=== PATIENT | female | born 1975 | race Two or more races ===

== ENCOUNTER 2016-08-12 16:16 | Emergency (ER) | payer SELFPAY ==
[2016-08-12 17:09] VITALS: BP 103/66
--- NOTE | 2016-08-12 17:27 | UC ---
Skin Complaint HPI - HPI Summary HPI Summary: PT WORKS AT [employer]. HAD A PPD PLACED 4 DAYS AGO 08/08/16. POSITIVE REACTION WITH SIGNIFICANT INDURATION AND TENDERNESS. WAS SENT HERE FOR FURTHER EVAL. OF NOTE PT REPORTS HAVING A POSITIVE PPD LAST YEAR AND A NEGATIVE CXR. NO MEDS. DENIES WEIGHT LOSS, SOB, FEVER, SWEATS, EASY BRUISING, HEMOPTYSIS OR MALAISE. 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 Hx Last Menstrual Period: July 30, 2016 Onset/Duration: Sudden Onset, Lasting Days, Still Present Skin Exposure Onset/Duration: Days Ago Timing: Constant Onset Severity: Moderate Current Severity: Moderate Pain Intensity: 4 Pain Scale Used: 0-10 Numeric Location: Discrete - RIGHT FOREARM Character: Swelling, Pain, Redness, Raised Aggravating: Touch Alleviating: Nothing Associated Signs & Symptoms: Positive: Tenderness - Allergy/Home Medications Allergies/Adverse Reactions: Allergies Allergy/AdvReac Type Severity Reaction Status Date / Time No Known Allergies Allergy Verified 08/12/16 17:09 Review of Systems Constitutional: Negative Skin: Other - POSITIVE PPD REACTION Respiratory: Negative Cardiovascular: Negative Gastrointestinal: Negative All Other Systems Reviewed And Are Negative: Yes PMH/Surg Hx/FS Hx/Imm Hx Previously Healthy: Yes - Surgical History Surgical History: Yes Surgery Procedure, Year, and Place: REPAIR OF PERFORATED LT EAR DRUM 2003 - Family History Known Family History: Negative: Hypertension, Diabetes - Social History Alcohol Use: Daily Alcohol Amount: one beer today Substance Use Type: None Smoking Status (MU): Never Smoked Tobacco Physical Exam Triage Information Reviewed: Yes Appearance: Well-Appearing, No Pain Distress, Well-Nourished Vital Signs: Initial Vital Signs Temp 97.3 F 08/12/16 17:00 Pulse 63 08/12/16 17:00 Resp 14 08/12/16 17:00 BP 103/66 08/12/16 17:00 Pulse Ox 99 08/12/16 17:00 Vital Signs Reviewed: Yes Eyes: Positive: Conjunctiva Clear ENT: Positive: Hearing grossly normal Neck: Positive: Supple Respiratory Exam: Normal Cardiovascular Exam: Normal Abdomen Description: Positive: Soft Musculoskeletal: Positive: No Edema Neurological: Positive: Alert Psychological: Positive: Normal Response To Family, Age Appropriate Behavior Skin: Positive: Other - 2CM X 1.8CM AREA OF INDURATION WITHIN A 2.5CM X 2CM AREA OF ERYTHEMA AT PPD INJECTION SITE RIGHT FOREARM Diagnostics - Radiology CXR Xray Interpretation: No Acute Changes Radiology Interpretation Completed By: Radiologist Course/Dx - Diagnoses Provider Diagnoses: POSITIVE PPD Discharge - Discharge Plan Condition: Stable Disposition: HOME Referrals: Elijah HENRIQUEZ,Wilmer Rodriguez [Medical Doctor] - 1 Week Tato Fajardo MD [Primary Care Provider] - If Needed Additional Instructions: GIVEN YOUR HISTORY OF A POSITIVE PPD TEST LAST YEAR AND A NEGATIVE CHEST XRAY YOU SHOULD NOT HAVE ANY MORE PPD SKIN TESTS. HOWEVER SINCE YOU HAD ONE THIS YEAR ANYWAY AND IT IS POSITIVE WE REPEATED YOUR CHEST XRAY WHICH IS AGAIN UNREMARKABLE. I RECOMMEND FOLLOW-UP WITH DR. HAHN (INFECTIOUS DISEASE) TO DISCUSS IF ANY FURTHER TESTING OR TREATMENT IS WARRANTED.
--- NOTE | 2016-08-12 18:40 | RAD ---
INDICATION: +PPD. COMPARISON: Comparison is made with a prior chest x-ray study from August 29, 2015. TECHNIQUE: Dual-energy PA and lateral views of the chest were obtained. FINDINGS: The heart is within normal limits in size. Mediastinal and hilar contours appear within normal limits. The lungs are underinflated and clear. No pleural effusion is seen. IMPRESSION: NO EVIDENCE FOR ACTIVE CARDIOPULMONARY DISEASE.
== END 2016-08-12 19:02 | disposition home or self-care (01) ==
LOC: UCEAST 16:16
DX: R76.11 Nonspecific reaction to tuberculin skin test without active tuberculosis (principal)
CPT/HCPCS: 71020; 99201; G0463